=== PATIENT | male | born 1965 | race Caucasian/White ===

== ENCOUNTER 2019-09-26 07:03 | Observation (INO) ==
[2019-09-26] MEDS ORDERED: Celecoxib 200 MG CAPSULE PO ONE (07:31)
[2019-09-26] MEDS ORDERED: Gabapentin 300 MG CAPSULE PO ONE (07:31)
[2019-09-26] MEDS ORDERED: *HR* OxyCODONE Immed Rel 5 MG TABLET PO ONE (07:35)
[2019-09-26] MEDS ORDERED: Ethanol\\Acetic Acid\\Na Ace\\Ben 1,000 ML IRRIG.SOLN IR ONE (07:38)
[2019-09-26] MEDS ORDERED: Ringers Solution, Lactated 1,000 ML IVC SCH ×2 (07:45→12:27)
[2019-09-26] MEDS ORDERED: CeFAZolin Syr 2,000MG/20 ML 2,000 MG/20 ML SYRINGE IVPB ONE (07:45)
[2019-09-26] MEDS ORDERED: *HR* OxyCODONE Immed Rel 5 MG TABLET PO PRN (07:52)
[2019-09-26] MEDS ORDERED: *HR* HYDROmorphone (PF) 1 MG/ML SYRINGE IVP PRN (07:52)
[2019-09-26] MEDS ORDERED: Ondansetron 4 MG/2 ML VIAL IVP ONE (07:52)
[2019-09-26] MEDS ORDERED: *HR* Promethazine 25 MG/ML VIAL IVP PRN ×2 (07:52→12:27)
[2019-09-26] MEDS ORDERED: ROPIVACAINE/PF/NS 0.25% 1 EACH SYRINGE INTRAART ONE ×2 (08:21→08:23)
[2019-09-26] MEDS ORDERED: Total Joint Mixture (50 ml) IR ONE (08:40)
[2019-09-26] MEDS ORDERED: Lidocaine -MPF 2% 2 ML VIAL ONE (09:33)
[2019-09-26] MEDS ORDERED: Tranexamic Acid 1,000 MG/10 ML VIAL ONE (09:33)
[2019-09-26] MEDS ORDERED: *HR* Midazolam HCl 2 MG/2 ML VIAL ONE (09:33)
[2019-09-26] MEDS ORDERED: Propofol 500 MG/50 ML INFUS..BTL ONE ×2 (09:33)
[2019-09-26] MEDS ORDERED: *HR* FentaNYL (PF) 100 MCG/2 ML VIAL ONE (09:33)
[2019-09-26] MEDS ORDERED: *HR* Propofol 200 MG/20 ML VIAL IVP ONE ×3 (09:33→10:43)
[2019-09-26] MEDS ORDERED: *HR* PHENYLEPHRINE 1,000 MCG/10 ML SYRINGE IVP ONE (10:01)
[2019-09-26 11:46] LABS: Hematocrit 35.5 % (37.5-50.1)
[2019-09-26] MEDS ORDERED: HYDROcodone BIT/Homatropine 5 MG TABLET PO PRN (12:27)
[2019-09-26] MEDS ORDERED: *HR* Dextrose 50 % in Water (Syg) 50 ML SYRINGE IVP PRN (12:27)
[2019-09-26] MEDS ORDERED: Ondansetron 4 MG/2 ML VIAL IVP PRN (12:27)
[2019-09-26] MEDS ORDERED: Sennosides 8.6 MG TABLET PO PRN (12:27)
[2019-09-26] MEDS ORDERED: MOM Conc 10 ML UD.LIQ PO PRN (12:27)
[2019-09-26] MEDS ORDERED: NON-FORMULARY MEDICATION 1 EACH EACH (Multivitamin [Daily Multiple Vitamin] 1 TAB) PO SCH (12:27)
[2019-09-26] MEDS ORDERED: Naloxone 0.4 MG/ML INJ IVP PRN (12:27)
[2019-09-26] MEDS ORDERED: Temazepam 15 MG CAPSULE PO PRN (12:27)
[2019-09-26] MEDS ORDERED: D5% in Water 1,000 ML IVC PRN (12:27)
[2019-09-26] MEDS ORDERED: Dextrose Gel 15 GM/37.5 ML TUBE PO PRN ×2 (12:27)
[2019-09-26] MEDS: Multivit/Ca/Min/Fe/FA 1 TAB TABLET PO SCH (14:14)
[2019-09-26] MEDS: Ketorolac 30 MG/ML VIAL IVP SCH ×2 (14:15→18:04)
[2019-09-26] MEDS: Gabapentin 300 MG CAPSULE PO SCH ×2 (14:15→20:51)
[2019-09-26] MEDS: Ascorbic Acid 500 MG TABLET PO SCH ×2 (14:15→17:51)
[2019-09-26] MEDS: Insulin LISPRO 300 UNITS/3 ML VIAL SQ SCH ×2 (14:23→16:44)
[2019-09-26] MEDS: *HR* OxyCODONE Immed Rel 5 MG TABLET PO PRN (16:41)
[2019-09-26] MEDS: *HR* Metformin 500 MG TABLET PO SCH (16:41)
[2019-09-26] MEDS ORDERED: Insulin LISPRO 300 UNITS/3 ML VIAL SQ SCH (21:00)
[2019-09-27] MEDS: Ketorolac 30 MG/ML VIAL IVP SCH ×3 (00:10→12:26)
[2019-09-27] MEDS: *HR* OxyCODONE Immed Rel 5 MG TABLET PO PRN ×3 (05:14→14:50)
[2019-09-27 07:14] LABS: Basophils % 0.3 %; Eosinophils # 0.2 K/mcL (0.0-0.6); Eosinophils % 2.8 %; Hematocrit 32.2 % (37.5-50.1); Hemoglobin 11.4 g/dL (12.9-16.9); Immature Granulocytes % 0.5 % (0-4); Lymphocytes # 1.3 K/mcL (0.6-4.6); Lymphocytes % 20.7 %; Mean Corpuscular HGB Conc 35.4 g/dL (31.6-35.5); Mean Corpuscular Volume 93.3 fL (83.0-100.0); Monocytes # 0.7 K/mcL (0.0-1.3); Monocytes % 11.5 %; Neutrophils # 3.9 K/mcL (1.6-8.9); Platelet Count 143 K/mcL (140-400); Red Blood Count 3.45 M/mcL (4.19-5.50); Red Cell Distribution Width 12.4 % (11.5-14.5); Segmented Neutrophils % 64.2 %; White Blood Count 6.1 K/mcL (4.3-11.1)
[2019-09-27 07:34] LABS: BUN/Creatinine Ratio 16 (6-26); Blood Urea Nitrogen 12 mg/dL (6-20); Calcium 8.5 mg/dL (8.6-10.3); Carbon Dioxide 27 mEq/L (23-29); Chloride 102 mEq/L (98-107); Glucose 142 mg/dL (70-105); Osmolality,Calculated 286 (280-300); Potassium 4.1 mEq/L (3.5-5.1); Sodium 137 mEq/L (136-145); eGFR For African Americans > 60 (> 60); eGFR For Non-African Americans > 60 (> 60)
[2019-09-27] MEDS ORDERED: Aspirin Enteric Coated 81 MG Tablet PO SCH (07:54)
[2019-09-27] MEDS: Insulin LISPRO 300 UNITS/3 ML VIAL SQ SCH ×2 (08:11→12:26)
[2019-09-27] MEDS: Gabapentin 300 MG CAPSULE PO SCH ×2 (09:33→14:50)
[2019-09-27] MEDS: *HR* Metformin 500 MG TABLET PO SCH ×2 (09:33→17:26)
[2019-09-27] MEDS: Multivit/Ca/Min/Fe/FA 1 TAB TABLET PO SCH (09:34)
[2019-09-27] MEDS: Ascorbic Acid 500 MG TABLET PO SCH (09:34)
[2019-09-27 15:48] VITALS: BP 124/82
== END 2019-09-27 17:55 | disposition home health service (06) ==
LOC: SAMDAY 07:03 → 3NENU 07:03
PROVIDERS: ADMIT Orthopaedic Surgery; ATTEND Orthopaedic Surgery